=== PATIENT | female | born 1955 | race Two or more races ===

== ENCOUNTER 2018-06-22 13:35 | Outpatient (CLI) | payer OTHER | END 2018-06-22 14:02 | disposition home or self-care (01) | LOC: RAD 501 13:35 | DX: M25.552 Pain in left hip (principal) ==

== ENCOUNTER 2019-07-06 11:12 | Outpatient (CLI) | payer OTHER | END 2019-07-06 11:18 | disposition home or self-care (01) | LOC: RAD 11:12 | DX: M25.511 Pain in right shoulder (principal); M25.512 Pain in left shoulder ==

== ENCOUNTER 2020-03-06 11:50 | Outpatient (CLI) | payer OTHER | END 2020-03-06 12:30 | disposition home or self-care (01) | LOC: RAD 11:50 | DX: M25.511 Pain in right shoulder (principal); M25.512 Pain in left shoulder ==